=== PATIENT | female | born 1980 | race African-American/Black ===

== ENCOUNTER 2020-03-24 21:25 | Emergency (ER) | payer OTHER ==
[~2020-03-24] VITALS: Ht 175.3 cm; Wt 90.7 kg
[2020-03-24] MEDS ORDERED: LANTUS SOL100 UNIT/1 (21:38)
[2020-03-24] MEDS ORDERED: METFORMIN HCL500 M3 (21:38)
[2020-03-24] MEDS ORDERED: HUMULIN 70100 UNIT/1 (21:38)
[2020-03-24] MEDS ORDERED: COZAAR25 MG (21:39)
[2020-03-24] MEDS ORDERED: DICLOFENAC SODI75 MG PO (22:29)
== END 2020-03-25 00:10 | disposition home or self-care (01) ==
LOC: ER 21:25
DX: G56.01 Carpal tunnel syndrome, right upper limb (principal); M25.531 Pain in right wrist